=== PATIENT | female | born 1950 | race Hispanic/Latino ===

== ENCOUNTER → 2017-12-02 | Outpatient (CLI) | payer MEDICARE | LOC: MAMMO 08:46 | PROVIDERS: ATTEND Internal Medicine | DX: Z12.31 Encounter for screening mammogram for malignant neoplasm of breast (principal) | CPT/HCPCS: 77067 ==

== ENCOUNTER → 2023-05-06 | Outpatient (REF) | payer MEDICARE | LOC: MRI 07:54 | PROVIDERS: ATTEND Internal Medicine | DX: M54.42 Lumbago with sciatica, left side (principal) | CPT/HCPCS: 72148 ==